=== PATIENT | female | born 2000 | race Hispanic/Latino ===

== ENCOUNTER 2021-02-01 20:34 | Emergency (ER) | payer SELFPAY, OTHER | END 2021-02-01 21:50 | disposition home or self-care (01) | LOC: CSHERS 20:34 | DX: S90.31XA Contusion of right foot, initial encounter (principal); V49.49XA Driver injured in collision with other motor vehicles in traffic accident, initial encounter ==

== ENCOUNTER 2021-02-07 06:45 | Emergency (ER) | payer OTHER, SELFPAY | END 2021-02-07 08:25 | disposition home or self-care (01) | LOC: CSHERS 06:45 | DX: R20.2 Paresthesia of skin (principal); V44.9XXA Unspecified car occupant injured in collision with heavy transport vehicle or bus in traffic accident, initial encounter | CPT/HCPCS: 70450; 72125 ==